=== PATIENT | female | born 1985 | race American Indian/Alaskan Native ===

== ENCOUNTER 2025-08-16 15:33 | Emergency (ER) | payer MEDICAID, SELFPAY ==
[2025-08-16 15:47] VITALS: BP 131/89; PULSE 93; RESP 18; TEMP 36.9; O2SAT 98
--- NOTE | 2025-08-16 15:50 | PD.EDURI ---
Upper Respiratory Inf. RME/HPI General Chief Complaint: Flu Like Symptoms Stated Complaint: COUGH Time Seen by Provider: 08/16/25 15:38 Arrival date/time: 08/16/25 15:33 Limitations: no limitations RME / HPI RME / HPI Narrative: 39-year-old female with history of cough x 5 days. States 3 days ago went to PCP was given Sudafed and promethazine. Reports not helping. Denies fever. Patient is a former smoker and states she is worried that she is coughing up yellow-green phlegm. No history of asthma but states constant cough and a tickle in her throat. No nausea vomiting diarrhea. States she came here looking for prescription for antibiotic Related Data Previous Rx's ?Medication ?Instructions ?Recorded albuterol sulfate 90 mcg/actuation 2 puff inhalation Q6H PRN 08/16/25 aerosol inhaler (Ventolin HFA) bronchospasm #6.7 grams azithromycin 250 mg tablet See Rx Instructions PO .COMPLEX #6 08/16/25 (Zithromax Z-Carlton) tabs Allergies Allergy/AdvReac Type Severity Reaction Status Date / Time No Known Drug Allergies Allergy Unknown Verified 08/16/25 15:34 Review of Systems Review of Systems Systems Reviewed: All systems reviewed, normal except as documented Constitutional Constitutional: Denies fever(s) ENT Ears, Nose, Mouth, and Throat: Reports as per HPI Respiratory Respiratory: Reports as per HPI ED Exam General Limitations: Present no limitations General appearance: Present alert and in no apparent distress Head Head exam: Present atraumatic Eye Eye exam: Present normal appearance, PERRL and EOMI ENT ENT exam: Present mucous membranes moist and other (Rhinorrhea,) Neck Neck exam: Present normal inspection, full ROM and trachea midline Respiratory Respiratory exam: Present normal lung sounds bilaterally Cardiovascular Cardiovascular exam: Present regular rate, normal rhythm and normal heart sounds Abdominal Exam Abdominal exam: Present soft and normal bowel sounds Extremities Exam Extremities exam: Present normal inspection and full ROM Back Exam Back exam: Present normal inspection and full ROM Skin Skin exam: Present warm, dry, intact and normal color Course Quality Measures none Vital Signs Vital signs: Vital Signs Temperature 98.4 F 08/16/25 15:47 Pulse Rate 93 08/16/25 15:47 Respiratory Rate 18 08/16/25 15:47 Blood Pressure 131/89 H 08/16/25 15:47 Pulse Oximetry (%) 98 08/16/25 15:47 Oxygen Delivery Method Room Air 08/16/25 15:47 Upper Respiratory Infection Patient data External records reviewed:: [facility] previous records Clinical information provided by:: patient Social determinants that could affect healthcare access:: other (specify) (PCP not open on the weekends) Patient has the following chronic illnesses:: Former smoker How is presenting disease/condition affected by chronic disease/condition?: exacerbated by Evaluation data The following diagnostics were reviewed and interpreted by me:: other (specify) (No labs or imaging warranted today) Lab and/or radiology exams considered but not ordered:: Chest x-ray and swabs were considered however has had symptoms past timeframe for swabs and lungs do not sound consistent with pneumonia Interpretation Summary: None to interpret Medications / Prescriptions Medications or Prescriptions considered but not ordered:: Promethazine was considered however patient already has prescription Medication administrations:: None Antibiotic and inhaler sent for home Consultations Consultation(s) initiated? (list below): No Diagnosis Upper Respiratory Differential Diagnosis: upper respiratory infection, croup, otitis media, sinusitis, bronchitis and other (Pneumonia) Most likely diagnosis given after review of the tests above:: Cough Former smoker Admission Indicated Admission indicated?: not indicated Admission Request Was there a request for admission?: No Disposition Plan Disposition Plan: Discharge Discharge Attestation Discharge Attestation: The patient and all family members were given an opportunity to ask questions and understood the discharge instructions. Discharge instructions specifically effects, indications for sooner follow up or return to the emergency department, and the expected course of current diagnosis. Patient condition: Stable Discharge Plan Plan Patient Disposition: HOME (Self Care) Discharge Disposition comment: Follow-up with PCP in 2 to 3 days Prescriptions/Referrals Prescriptions/Med Rec: New azithromycin [Zithromax Z-Carlton] 250 mg tablet See Rx Instructions PO .COMPLEX Qty: 6 0RF Rx Instructions: take 500 mg today (day 1), then 250 mg for 4 days (days 2-5) albuterol sulfate [Ventolin HFA] 90 mcg/actuation HFA aerosol inhaler 2 puff inhalation Q6H PRN (Reason: bronchospasm) Qty: 6.7 0RF Problem List Clinical Impression: Cough, Smoking hx Patient/Caregiver Discharge Instructions Education Materials: ED Cough Chronic Uncertain Cause Adult Print Language: Surinamese Stand Alone Forms: Marcia Award Info., Patient Portal Info Letter PA/TIME ANALYSIS CLERK Supervising Physician PA/TIME ANALYSIS CLERK Supervising Physician: Dr. hernandez
== END 2025-08-16 16:03 | disposition home or self-care (01) ==
LOC: SERX 16:01
PROVIDERS: Emergency Provider Emergency Medicine; PCP Family Medicine
DX: R05.9 Cough, unspecified (principal); Z87.891 Personal history of nicotine dependence
CPT/HCPCS: 99281